=== PATIENT | female | born 1995 | race Caucasian/White ===

== ENCOUNTER 2020-01-01 11:32 | Outpatient (CLI) | payer OTHER, SELFPAY ==
--- NOTE | ~2020-01-01 | MMUS_ITS ---
EXAMINATION: MM diagnostic obed LT w josé miguel, US breast LT complete HISTORY: Left breast mass TECHNIQUE: ML, MLO and craniocaudal 3-D tomosynthesis images of the left breast were performed and sy nthetic 2-D images were generated. CAD analysis was submitted and interpreted. High resolution complete left breast ultrasound was performed prior to the mammogram. The patient ind icated that she definitely warranted the left diagnostic mammogram due to history of breast cancer in her family including grandmother and aunt. COMPARISON: None BREAST PARENCHYMAL COMPOSITION: The breasts are extremely dense, which lowers the sensitivity of mamm ography. FINDINGS: MAMMOGRAPHIC FINDINGS: An approximately 2.5 cm oval circumscribed mass is suggested superiorly in the upper mid to outer lef t breast. Additional smaller circumscribed masses may be present but are difficult to definitively co nfirm or localize due to the dense stroma. No architectural distortion, malignant calcification, skin thickening or retraction is evident.. ULTRASOUND: 4:00 2 cm from nipple: Oval parallel circumscribed hypoechoic 9.3 x 5.9 x 11.0 mm solid mass without internal vascularity or suspicious shadowing. This has benign mammographic appearance. 5:00 6 cm from nipple: Parallel circumscribed hypoechoic approximately 4.3 x 12.5 x 7.5 mm hypoechoic solid lesion with internal vascularity, possibly a lymph node 12:00 2 cm from nipple: Circumscribed lobular internally septated hypoechoic 21.4 x 31 mm solid mass with mild internal vascularity, no suspicious shadowing. Considering the size, ultrasound-guided bio psy should be considered. IMPRESSION: 1. Several circumscribed hypoechoic masses, the largest at 12:00 2 cm from the nipple, measuring up t o 3.1 cm 2. Consider ultrasound-guided biopsy of the 12:00 lesion BI-RADS category 4a, suspicious findings. Reviewed, dictated and finalized at location A. IMPRESSION: 1. Several circumscribed hypoechoic masses, the largest at 12:00 2 cm from the nipple, measuring up to 3.1 cm 2. Consider ultrasound-guided biopsy of the 12:00 lesion BI-RADS category 4a, suspicious findings.
== END 2020-01-01 11:33 | disposition home or self-care (01) ==
LOC: ANHIMG 11:38
PROVIDERS: PCP Family Medicine; Visit Provider Nurse Practitioner Obstetrics & Gynecology
DX: N63.20 Unspecified lump in the left breast, unspecified quadrant (principal); R92.8 Other abnormal and inconclusive findings on diagnostic imaging of breast
CPT/HCPCS: 76641; 77061; 77065; G0279